=== PATIENT | male | born 1970 | race Hispanic/Latino ===

== ENCOUNTER 2019-10-08 10:54 | Emergency (ER) | payer OTHER, SELFPAY ==
[~2019-10-08 10:54] MED LIST: ASPI-12 PO; HYDR-4457 PO; MVIT GT; TRAM50TA2 PO
[2019-10-08] MEDS ORDERED: IOHEXOL-350 75 ML VIAL IV ONE (11:09)
[2019-10-08] MEDS ORDERED: ASPIRIN 325 MG TABLET ONE (11:49)
[2019-10-08 11:51] LABS: BASOPHILS % (AUTO) 1.1 % (0.0-5.0); EOSINOPHILS % (AUTO) 7.3 % (0.0-8.0); HEMATOCRIT 44.6 % (42-54); MEAN CORPUSCULAR HEMOGLOBIN 30.6 pg (27.0-33.0); MEAN CORPUSCULAR HGB CONC 34.5 g/dL (32.0-36.0); MEAN CORPUSCULAR VOLUME 88.5 fL (79-99); MONOCYTES % (AUTO) 10.9 % (3.0-13.0); NEUTROPHILS % (AUTO) 59.2 % (40.0-77.0); PLATELET COUNT (AUTO) 209 K/uL (130-400); RED BLOOD CELL COUNT(AUTO) 5.04 MIL/uL (4.50-6.20); RED CELL DISTRIBUTION WIDTH 12.6 % (11.0-15.5); WHITE BLOOD COUNT (AUTO) 8.1 K/uL (4.8-10.8)
[2019-10-08 12:02] LABS: CREATININE 1.4 mg/dL (0.5-1.5); POTASSIUM 4.2 mmol/L (3.5-5.1)
[2019-10-08 12:07] LABS: ALBUMIN 3.8 g/dL (3.5-5.0); BILIRUBIN,TOTAL 0.5 mg/dL (0.2-1.0); TOTAL PROTEIN, SERUM 7.3 g/dL (6.0-8.3)
[2019-10-08 12:57] LABS: APPEARANCE,URINE Clear (CLEAR); BILIRUBIN,URINE Negative (NEGATIVE); COLOR,URINE Yellow (YELLOW); GLUCOSE, URINE (UA) Negative (NEGATIVE); KETONES,URINE Negative (NEGATIVE); LEUKOCYTE ESTERASE ,URINE Negative (NEGATIVE); NITRATE,URINE Negative (NEGATIVE); OCCULT BLOOD,URINE Negative (NEGATIVE); PH,URINE 5.5 (5.0-8.0); PROTEIN,URINE Negative (NEGATIVE); UROBILINOGEN,URINE 0.2 mg/dL (0.2-1.0)
[2019-10-08 13:05] LABS: AMPHET/METH SCREEN,URINE NEGATIVE (NEGATIVE); BARBITURATE SCREEN, URINE NEGATIVE (NEGATIVE); BENZODIAZEPINES SCREEN,URINE NEGATIVE (NEGATIVE); CANNABINOID SCREEN,URINE POSITIVE (NEGATIVE); COCAINE SCREEN,URINE POSITIVE (NEGATIVE); OPIATE SCREEN,URINE NEGATIVE (NEGATIVE); PHENCYCLIDINE SCREEN,URINE NEGATIVE (NEGATIVE)
== END 2019-10-08 17:27 | disposition home or self-care (01) ==
LOC: EDH 10:54
DX: G45.9 Transient cerebral ischemic attack, unspecified (principal); I66.01 Occlusion and stenosis of right middle cerebral artery; Z72.0 Tobacco use
CPT/HCPCS: 36415; 70450; 70496; 70498; 71045; 80053; 80305; 81003; 85025; 93005; 99291; Q9967

== ENCOUNTER 2020-12-12 03:45 | Emergency (ER) | payer OTHER, SELFPAY ==
[~2020-12-12] VITALS: Ht 193 cm; Wt 131.5 kg
[2020-12-12 03:54] VITALS: BP 159/91
[2020-12-12] MEDS ORDERED: ONDANSETRON 4MG INJ ONE (04:08)
[2020-12-12 04:59] LABS: EOSINOPHILS % (AUTO) 6.2 % (0.0-8.0); HEMATOCRIT 46.1 % (42-54); LYMPHOCYTES % (AUTO) 27.6 % (21.0-51.0); MEAN CORPUSCULAR HEMOGLOBIN 29.4 pg (27.0-33.0); MEAN CORPUSCULAR VOLUME 89.2 fL (79-99); MONOCYTES % (AUTO) 12.3 % (3.0-13.0); NEUTROPHILS % (AUTO) 52.6 % (40.0-77.0); PLATELET COUNT (AUTO) 253 K/uL (130-400); RED BLOOD CELL COUNT(AUTO) 5.17 MIL/uL (4.50-6.20); RED CELL DISTRIBUTION WIDTH 12.9 % (11.0-15.5); WHITE BLOOD COUNT (AUTO) 8.9 K/uL (4.8-10.8)
[2020-12-12] MEDS ORDERED: LACTATED RINGERS 1000ML 1,000 ML IV ONE (05:00)
[2020-12-12 05:16] VITALS: BP 131/60
[2020-12-12 05:31] LABS: POTASSIUM 3.9 mmol/L (3.5-5.1)
[2020-12-12 05:44] LABS: ALBUMIN 3.6 g/dL (3.5-5.0); BILIRUBIN,TOTAL 0.5 mg/dL (0.2-1.0); CREATININE 1.9 mg/dL (0.5-1.5); CRP QUANTITATIVE 7.5 mg/L (0.00-9.0); TOTAL PROTEIN, SERUM 7.4 g/dL (6.0-8.3)
[2020-12-12 08:45] LABS: APPEARANCE,URINE Clear (CLEAR); BILIRUBIN,URINE Negative (NEGATIVE); COLOR,URINE Yellow (YELLOW); GLUCOSE, URINE (UA) Negative (NEGATIVE); KETONES,URINE Negative (NEGATIVE); LEUKOCYTE ESTERASE ,URINE Negative (NEGATIVE); NITRATE,URINE Negative (NEGATIVE); OCCULT BLOOD,URINE Negative (NEGATIVE); PH,URINE 5.5 (5.0-8.0); PROTEIN,URINE Negative (NEGATIVE); UROBILINOGEN,URINE 0.2 mg/dL (0.2-1.0)
[2020-12-12 09:29] VITALS: BP 135/60
[2020-12-12] MEDS ORDERED: ONDA4TAB4 PO (09:39)
== END 2020-12-12 10:00 | disposition home or self-care (01) ==
LOC: EDH 03:45
DX: T67.5XXA Heat exhaustion, unspecified, initial encounter (principal); E86.0 Dehydration; Z20.822 Contact with and (suspected) exposure to COVID-19; Z79.899 Other long term (current) drug therapy; Z86.73 Personal history of transient ischemic attack (TIA), and cerebral infarction without residual deficits; Z79.82 Long term (current) use of aspirin; X58.XXXA Exposure to other specified factors, initial encounter; Y93.89 Activity, other specified; Y92.89 Other specified places as the place of occurrence of the external cause; Y99.8 Other external cause status
CPT/HCPCS: 36415; 71045; 80053; 81003; 84484; 85025; 86140; 87635; 93005; 96361; 96374; 99285; C9803; J2405; J7120

== ENCOUNTER 2023-06-29 17:08 | Emergency (ER) | payer OTHER, SELFPAY ==
[~2023-06-29] VITALS: Ht 193 cm; Wt 127.0 kg
[~2023-06-29 17:08] MED LIST changes: +ONDA4TAB4 PO
[2023-06-29] MEDS: KETOROLAC 30MG VIAL (30MG/ML) IM ONE (18:41)
[2023-06-29] MEDS ORDERED: NAPR-1180 PO (18:59)
[2023-06-29] MEDS: CLONIDINE HCL 0.1 MG TABLET PO ONE (20:06)
[2023-06-29 20:36] VITALS: BP 167/103; PULSE 89; RESP 18; O2SAT 98
== END 2023-06-29 20:38 | disposition home or self-care (01) ==
LOC: EDH 17:08
DX: S83.8X1A Sprain of other specified parts of right knee, initial encounter (principal); Z79.82 Long term (current) use of aspirin; Z79.899 Other long term (current) drug therapy; Z98.890 Other specified postprocedural states; X50.1XXA Overexertion from prolonged static or awkward postures, initial encounter; Y93.01 Activity, walking, marching and hiking; Y92.098 Other place in other non-institutional residence as the place of occurrence of the external cause; Y99.8 Other external cause status
CPT/HCPCS: 99285; 29505; 73562; 96372; J1885